=== PATIENT | female | born 1980 ===

== ENCOUNTER 2017-11-17 14:01 | Emergency (ER) | payer BC, SELFPAY ==
[2017-11-17] MEDS ORDERED: Acetaminophen 500 MG TAB ONE (15:52)
[2017-11-17] MEDS ORDERED: Ibuprofen 800 MG TAB ONE (15:52)
--- NOTE | 2017-11-17 16:05 | RAD ---
CHEST TWO VIEWS: 11/17/17 HISTORY: Chest and back pain. FINDINGS: The cardiac silhouette and pulmonary vasculature are unremarkable. mediastinum is midline. There is n o confluent air space consolidation, pneumothorax or pleural fluid evident. IMPRESSION: No active cardiopulmonary abnormalities are demonstrated. POS: [facility]
== END 2017-11-17 16:25 | disposition home or self-care (01) ==
LOC: ERS 14:01
DX: M62.830 Muscle spasm of back (principal)
CPT/HCPCS: 71046

== ENCOUNTER 2018-06-07 14:45 | Outpatient (CLI) | payer MEDICAID ==
--- NOTE | 2018-06-07 16:18 | ULT ---
PELVIC ULTRASOUND WITH DOPPLER: Date: 06/07/18 HISTORY: Pelvic pain. TECHNIQUE: Transabdominal, transvaginal ultrasound of the pelvis was performed using Trevino scale, color flow, and spectral Doppler imaging. FINDINGS: The uterus measures 11.4 x 5.0 x 5.3 cm, without focal mass or endometrial fluid. The endometrium larry sures 4.0 mm in thickness. The right ovary measures 3.1 x 1.7 x 1.9 cm. The left ovary measures 3.2 x 1.9 x 2.0 cm. Flow is demo nstrated to both ovaries. No adnexal mass or free fluid in the cul-de-sac is seen. IMPRESSION: Normal exam. POS: [facility]
== END 2018-06-07 14:46 | disposition home or self-care (01) ==
LOC: BICULT 14:45
PROVIDERS: ATTEND Advanced Practice Midwife
DX: R10.2 Pelvic and perineal pain (principal)
CPT/HCPCS: 76856